=== PATIENT | female | born 1975 | race Caucasian/White ===

== ENCOUNTER 2022-02-02 12:23 | Emergency (ER) | payer BC, OTHER ==
[~2022-02-02] VITALS: Ht 170 cm; Wt 57.6 kg
[~2022-02-02 12:23] MED LIST: RABE20TA; TRAZ150T42
--- NOTE | 2022-02-02 12:56 | ED Chest Pain ---
General Chief Complaint: Chest Pain Stated Complaint: RAPID HEART BEAT CHEST HEAVINESS TINGLING IN ARM Nursing Triage Note: PT STATES CHEST PAIN, NAUSEA, SWEATY, NUMBNESS IN LT ARM ABOUT 1 HR SCRAPE GATHERER Source: patient, family () Exam Limitations: no limitations History of Present Illness Date Seen by Provider: Feb 02, 2022 Time Seen by Provider: 12:42 Initial Comments Patient is a 46-year-old female who presents to the emergency department today with a chief complaint of tingling in her left hand and arm, chest pressure/heaviness onset around 11 AM. She states she woke up "not feeling good" this morning, at one point laid in her floor to see if she could feel a little bit better. She states when she sat up she noticed the heaviness in her chest. She states she does not have actual chest "pain". But she just does not feel good. No runny nose, sore throat or congestion. No cough. She has been nauseous this morning. No diarrhea. No urinary complaints. No rashes, swelling. She has chronic joint pains due to "chronic Lyme disease" and a history of Raynaud's syndrome. She is on amlodipine to treat the Raynaud's. She has had hypertension in the past, was on blood pressure medications for about 5 years but came off of it in April at the direction of her primary care physician. She is quite active and has been a runner up to 20 miles a week. She states around the time she was at her peak running she started having shortness of breath and various complaints which resulted in an echo stress test which she passed. No family history of early coronary artery disease. She was a smoker "30 years ago". Unknown cholesterol status. She is not on medications for cholesterol. Currently rates the pressure/heaviness in her chest at a "6". All other review of systems reviewed and negative except as stated Timing/Duration: 1-3 hours Severity/Quality: moderate, pressure Location: central Radiation: no radiation Activities at Onset: none Prior CP/Workup: stress test ASA po SCRAPE GATHERER: No NTG SL SCRAPE GATHERER: No Associated Symptoms: diaphoresis ("clammy hands" per ), nausea/vomiting (nausea without vomiting) Allergies and Home Medications Allergies Coded Allergies: Promethazine (Verified Allergy, Severe, 07/20/05) Codeine (Unverified Allergy, Mild, 02/16/08) Hydrocodone (Verified Allergy, Unknown, 02/23/08) Patient Home Medication List Home Medication List Reviewed: Yes Rabeprazole Sodium (Aciphex) 20 Mg Tablet., (Reported) Entered as Reported by: CHERYL CROW on 10/08/082046 Trazodone Hcl (Desyrel) 150 Mg Tablet, (Reported) Entered as Reported by: CHERYL CROW on 10/08/082045 Review of Systems Review of Systems Constitutional: see HPI, malaise EENTM: No Symptoms Reported Respiratory: No Symptoms Reported Cardiovascular: Chest Pain ("pressure or heaviness") Gastrointestinal: No Symptoms Reported, Nausea Genitourinary: No Symptoms Reported Musculoskeletal: no symptoms reported Skin: no symptoms reported Psychiatric/Neurological: Paresthesia (left arm/hand) All Other Systems Reviewed Negative Unless Noted: Yes Past Qkbmupr-Euodxv-Pizbkc Hx Patient Social History Tobacco Use?: No Substance use?: No Alcohol Use?: No Past Medical History Surgery/Hospitalization HX: PARTIAL HYST, GALLBLADDER, LYMES DISEASE Reproductive Disorders: No Physical Exam Vital Signs Vital Signs - First Documented 02/02/22 12:30 Temp 35.9 Pulse 57 Resp 18 B/P (MAP) 167/103 (124) Pulse Ox 99 O2 Delivery Room Air Capillary Refill : Less Than 3 Seconds Height, Weight, BMI Height: '" Weight: lbs. oz. kg; 19.00 BMI Method: General Appearance: No Apparent Distress, WD/WN, Other (appears fit and thin) HEENT: PERRL/EOMI Neck: Normal Inspection Respiratory: Lungs Clear, Normal Breath Sounds, No Accessory Muscle Use, No Respiratory Distress Cardiovascular: Regular Rate, Rhythm, Normal Peripheral Pulses (2+ radial bilaterally) Gastrointestinal: Non Tender, Soft Extremity: Normal Capillary Refill, Normal Inspection, Normal Range of Motion, Non Tender, No Calf Tenderness, No Pedal Edema Neurologic/Psychiatric: Alert, Oriented x3, No Motor/Sensory Deficits, Normal Mood/Affect, loading machine operator II-XII Norm as Tested Skin: Normal Color, Warm/Dry Progress/Results/Core Measures Results/Orders Lab Results Laboratory Tests Test 02/02/22 12:58 02/02/22 15:02 Range/Units White Blood Count 5.0 4.3-11.0 10^3/uL Red Blood Count 4.50 3.80-5.11 10^6/uL Hemoglobin 13.5 11.5-16.0 g/dL Hematocrit 40 35-52 % Mean Corpuscular Volume 88 80-99 fL Mean Corpuscular Hemoglobin 30 25-34 pg Mean Corpuscular Hemoglobin Concent 34 32-36 g/dL Red Cell Distribution Width 11.9 10.0-14.5 % Platelet Count 229 130-400 10^3/uL Mean Platelet Volume 10.1 9.0-12.2 fL Immature Granulocyte % (Auto) 0 % Neutrophils (%) (Auto) 42 42-75 % Lymphocytes (%) (Auto) 47 H 12-44 % Monocytes (%) (Auto) 7 0-12 % Eosinophils (%) (Auto) 2 0-10 % Basophils (%) (Auto) 1 0-10 % Neutrophils # (Auto) 2.1 1.8-7.8 10^3/uL Lymphocytes # (Auto) 2.4 1.0-4.0 10^3/uL Monocytes # (Auto) 0.4 0.0-1.0 10^3/uL Eosinophils # (Auto) 0.1 0.0-0.3 10^3/uL Basophils # (Auto) 0.1 0.0-0.1 10^3/uL Immature Granulocyte # (Auto) 0.0 0.0-0.1 10^3/uL Prothrombin Time 13.9 12.2-14.7 SEC INR Comment 1.0 0.8-1.4 Activated Partial Thromboplast Time 31 24-35 SEC Sodium Level 140 135-145 MMOL/L Potassium Level 3.6 3.6-5.0 MMOL/L Chloride Level 106 98-107 MMOL/L Carbon Dioxide Level 23 21-32 MMOL/L Anion Gap 11 5-14 MMOL/L Blood Urea Nitrogen 9 7-18 MG/DL Creatinine 0.85 0.60-1.30 MG/DL Estimat Glomerular Filtration Rate 84 BUN/Creatinine Ratio 11 Glucose Level 101 70-105 MG/DL Calcium Level 9.6 8.5-10.1 MG/DL Corrected Calcium 9.2 8.5-10.1 MG/DL Magnesium Level 1.9 1.6-2.4 MG/DL Total Bilirubin 0.6 0.1-1.0 MG/DL Aspartate Amino Transf (AST/SGOT) 21 5-34 U/L Alanine Aminotransferase (ALT/SGPT) 20 0-55 U/L Alkaline Phosphatase 61 40-136 U/L Myoglobin 34.3 10.0-92.0 NG/ML Troponin I < 0.028 <0.028 NG/ML Total Protein 7.0 6.4-8.2 GM/DL Albumin 4.5 3.2-4.5 GM/DL SARS-CoV-2 RNA (RT-PCR) Not Detected Not Detecte My Orders Orders - YESSY REDDY MD Ekg Tracing (02/02/22 12:27) Cbc With Automated Diff (02/02/22 12:59) Magnesium (02/02/22 12:59) Chest 1 View, Ap/Pa Only (02/02/22 12:59) Comprehensive Metabolic Panel (02/02/22 12:59) Myoglobin Serum (02/02/22 12:59) Protime With Inr (02/02/22 12:59) Partial Thromboplastin Time (02/02/22 12:59) O2 (02/02/22 12:59) Monitor-Rhythm Ecg Trace Only (02/02/22 12:59) Lipid Panel (02/03/22 06:00) Ed Iv/Invasive Line Start (02/02/22 12:59) Troponin I [place] (02/02/22 12:59) Covid 19 Inhouse Test (02/02/22 12:59) Isolation Central Supply Req (02/02/22 12:59) Aspirin Chewable Tablet (Baby Aspirin Ch (02/02/22 13:00) Ondansetron Injection (Zofran Injectio (02/02/22 13:00) Troponin I [place] (02/02/22 14:54) Medications Given in ED Current Medications Medications Dose Ordered Sig/Win Route Start Time Stop Time Status Last Admin Dose Admin Aspirin 324 mg ONCE ONCE PO 02/02/22 13:00 02/02/22 13:01 DC 02/02/22 13:06 324 MG Ondansetron HCl 4 mg ONCE ONCE IVP 02/02/22 13:00 02/02/22 13:01 DC 02/02/22 13:06 4 MG Vital Signs/I&O 02/02/22 12:30 Temp 35.9 Pulse 57 Resp 18 B/P (MAP) 167/103 (124) Pulse Ox 99 O2 Delivery Room Air Blood Pressure Mean: 124 Progress Progress Note : Time: 14:27 Progress Note Patient's work-up is reviewed and unremarkable. Normal CBC, chemistry, troponin, chest x-ray and EKG. Her vital signs are stable her blood pressure has come down to 132 over 80s. She is without complaints at this time. I recommended we repeat her troponin here in about 20 minutes. That will give us about almost 4 hours since the onset of her discomfort. Recommended close follow-up with her primary care doctor. I do not think there is an urgent need due to her lack of risk factors for an emergent follow-up with Dr. Clark who has seen her for cardiac evaluation in the past through [facility] in [place]. I did recommend that if her symptoms upon discharge should recur or worsen or she has new complaints that she come back to the emergency room for reevaluation. Both she and her verbalized understanding and are agreeable with plan of care. All questions are sought and answered Initial ECG Impression Date: Feb 02, 2022 Initial ECG Impression Time: 12:35 Initial ECG Rate: 57 Initial ECG Rhythm: Normal Sinus Initial ECG Intervals: Normal Initial ECG Impression: Normal Diagnostic Imaging Diagonstic Imaging: Xray Plain Films/CT/US/NM/MRI: chest Comments [facility], [place] NAME: VALORIE ANGELA [facility] REC#: [id number] PT STATUS: REG ER : 1975 PHYSICIAN: YESSY REDDY MD ADMIT DATE: 02/02/22/ER Signed Date of Exam:02/02/22 CHEST 1 VIEW, AP/PA ONLY EXAM: CHEST 1 VIEW, AP/PA ONLY INDICATION: Chest pain. COMPARISON: None. FINDINGS: Normal heart size and central pulmonary vascularity. Lungs are clear. No pleural effusion or pneumothorax. No acute osseous findings. IMPRESSION: No acute cardiopulmonary findings. Dictated by: Dictated on workstation # [id number] Dict: 02/02/22 1321 Trans: 02/02/22 1408 CVB [id number] Interpreted by: FERNANDO NARVAEZ MD Electronically signed by: FERNANDO NARVAEZ MD 02/02/22 1408 Departure Impression Primary Impression: Chest pain Qualified Codes: R07.9 - Chest pain, unspecified Disposition: 01 HOME, SELF-CARE Condition: Stable Departure-Patient Inst. Decision time for Depature: 15:18 Referrals: KEISHA VIRGEN MD (PCP/Family) Primary Care Physician Patient Instructions: Chest Pain That Is Not Caused by the Heart (DC) Add. Discharge Instructions: You should follow-up closely with your primary care physician regarding your symptoms today. Drink plenty of fluids to stay well-hydrated. An gwnl-qnm-lskplqk acid line haul driver such as Pepcid, Zantac or Prilosec may be helpful as gastroesophageal reflux disease can mimic cardiac pain. If you have a return of symptoms especially worsening with shortness of breath, sweating, radiation of the pain or any other emergent, concerning complaints please come back to the emergency room for reevaluation. YESSY REDDY MD Feb 02, 2022 12:56
[2022-02-02] MEDS ORDERED: ONDANSETRON 4 MG/2 ML (SDV) Z0FRAN IVP ONE (13:00)
[2022-02-02] MEDS ORDERED: ASPIRIN 81 MG CHEW (CHILDREN'S ASA) PO ONE (13:00)
[2022-02-02 13:05] LABS: BASOPHILS # (AUTO) 0.1 10^3/uL (0.0-0.1); BASOPHILS % (AUTO) 1 % (0-10); EOSINOPHILS # (AUTO) 0.1 10^3/uL (0.0-0.3); EOSINOPHILS % (AUTO) 2 % (0-10); HEMATOCRIT 40 % (35-52); HEMOGLOBIN 13.5 g/dL (11.5-16.0); LYMPHOCYTES # (AUTO) 2.4 10^3/uL (1.0-4.0); LYMPHOCYTES % (AUTO) 47 % (12-44); MEAN CORPUSCULAR HEMOGLOBIN 30 pg (25-34); MEAN CORPUSCULAR HGB CONC 34 g/dL (32-36); MEAN CORPUSCULAR VOLUME 88 fL (80-99); MEAN PLATELET VOLUME 10.1 fL (9.0-12.2); MONOCYTES # (AUTO) 0.4 10^3/uL (0.0-1.0); MONOCYTES % (AUTO) 7 % (0-12); NEUTROPHILS # (AUTO) 2.1 10^3/uL (1.8-7.8); NEUTROPHILS % (AUTO) 42 % (42-75); PLATELET COUNT 229 10^3/uL (130-400)
[2022-02-02 13:10] LABS: ALBUMIN 4.5 GM/DL (3.2-4.5); POTASSIUM 3.6 MMOL/L (3.6-5.0)
[2022-02-02 13:11] LABS: CALCIUM 9.6 MG/DL (8.5-10.1)
[2022-02-02 13:13] LABS: PROTHROMBIN TIME PATIENT 13.9 SEC (12.2-14.7)
[2022-02-02 13:14] LABS: BILIRUBIN,TOTAL 0.6 MG/DL (0.1-1.0)
[2022-02-02 13:16] LABS: CREATININE SERUM 0.85 MG/DL (0.60-1.30)
[2022-02-02 13:19] LABS: MAGNESIUM 1.9 MG/DL (1.6-2.4)
--- NOTE | 2022-02-02 13:22 | Diagnostic Imaging Report ---
EXAM: CHEST 1 VIEW, AP/PA ONLY INDICATION: Chest pain. COMPARISON: None. FINDINGS: Normal heart size and central pulmonary vascularity. Lungs are clear. No pleural effusion or pneumothorax. No acute osseous findings. IMPRESSION: No acute cardiopulmonary findings. Dictated by: Dictated on workstation # [id number]
[2022-02-02 16:02] VITALS: BP 132/88
== END 2022-02-02 16:02 | disposition home or self-care (01) ==
LOC: EDUNIT# 12:23 → ER 12:26
DX: R07.89 Other chest pain (principal); I73.00 Raynaud's syndrome without gangrene; Z79.899 Other long term (current) drug therapy; Z20.822 Contact with and (suspected) exposure to COVID-19; Z28.310 Unvaccinated for COVID-19
CPT/HCPCS: 36415; 71045; 80053; 83735; 83874; 84484; 85025; 85610; 85730; 87636; 93005; 93041

== ENCOUNTER → 2022-05-13 | Outpatient (CLI) | payer BC ==
--- NOTE | 2022-05-13 09:43 | Diagnostic Imaging Report ---
PROCEDURE: CT abdomen and pelvis without contrast. TECHNIQUE: Multiple contiguous axial images were obtained through the abdomen and pelvis without the use of intravenous contrast. Auto Exposure Controls were utilized during the CT exam to meet ALARA standards for radiation dose reduction. INDICATION: Intermittent abdominal pain, progressive in severity. COMPARISON: I have no priors. FINDINGS: The air-containing appendix is nondilated. No wall thickening. No periappendiceal stranding or edema. There is no appendicitis. There are no radiopaque urinary tract calculi and there is no hydroureteronephrosis. The gallbladder is surgically absent. No pathological dilatation of bile ducts. The spleen, adrenals, and pancreas appear nonacute. The aorta is nonaneurysmal. There is no bowel obstruction. There is no diverticulitis. The uterus, adnexa, and urinary bladder are unremarkable. There is no bowel wall thickening. No perienteric or pericolonic edema. No ascites, abscess, hematoma, or acute fluid collection. No abdominal wall defect or hernia. The lung bases and the bony structures are nonacute. IMPRESSION: Unremarkable abdominal/pelvic CT showing no acute appearing abnormality. Dictated by: Dictated on workstation # [id number]
== END ==
LOC: RAD 08:29
PROVIDERS: ATTEND Family Medicine
DX: R10.33 Periumbilical pain (principal)
CPT/HCPCS: 74176